=== PATIENT | male | born 1970 | race Caucasian/White ===

== ENCOUNTER 2021-06-25 10:45 | Emergency (ER) | payer OTHER ==
[2021-06-25 11:41] VITALS: BP 110/50; PULSE 77; TEMP 97.8; BMI 27.6
[2021-06-25 11:49] LABS: HEMOGLOBIN 12.7 G/dL (11.7-16.9); MCH 31.6 pg (25.7-33.7); MCHC 34.4 g/dl (32.0-35.9); MEAN CELL VOLUME 92.1 fl (80-96); MEAN PLT VOLUME 8.3 fl (7.5-11.1); PLATELET COUNT 73.4 10^3/uL (134-434); RBC 4.02 10^6/uL (4.00-5.60); RDW 14.3 % (11.9-15.9); WHITE BLOOD COUNT 6.3 10^3/uL (4.0-10.8)
[2021-06-25 12:05] LABS: ALBUMIN 2.7 g/dl (3.4-5.0); BILIRUBIN,TOTAL 0.6 mg/dl (0.2-1); CALCIUM 8.8 mg/dl (8.5-10); CREATININE 0.8 mg/dl (0.55-1.3); TOT PROT 6.1 g/dl (6.4-8.2)
[2021-06-25 13:13] LABS: PLATELET ESTIMATE DECREASED
[2021-06-25] MEDS ORDERED: CEFTRIAXONE 1,000 MG in DEXTROSE 5%-WATER - 50 ML IVPB ONE (13:33)
[2021-06-25] MEDS ORDERED: POTASSIUM CHLORIDE TABS 20 MEQ TABLET.ER (FP) PO ONE ×2 (13:35→13:40)
[2021-06-25] MEDS ORDERED: cefTRIAXone SODIUM 1 GM VIAL ONE (13:40)
== END 2021-06-25 14:26 | disposition home or self-care (01) ==
LOC: FER 10:45
PROC: 3E033GC Introduction of Other Therapeutic Substance into Peripheral Vein, Percutaneous Approach (ICD-10-PCS; principal; 2021-06-25)
DX: L03.116 Cellulitis of left lower limb (principal); D69.6 Thrombocytopenia, unspecified; E87.6 Hypokalemia
CPT/HCPCS: 36415; 71045-TC-FY; 73630-TC-LT; 80053; 85025; 93971-TC; 99284-25

== ENCOUNTER 2022-09-29 19:57 | Emergency (ER) | payer OTHER ==
[2022-09-29 20:41] VITALS: BP 129/59; PULSE 74; RESP 16; TEMP 97.3; BMI 28.3
== END 2022-09-29 20:56 | disposition home or self-care (01) ==
LOC: FER 19:57
DX: Z04.1 Encounter for examination and observation following transport accident (principal)
CPT/HCPCS: 99282-25

== ENCOUNTER 2023-10-08 12:51 | Emergency (ER) | payer OTHER ==
[2023-10-08 13:26] VITALS: BP 111/57; PULSE 71; RESP 20; TEMP 98.4; BMI 29.2
== END 2023-10-08 16:28 | disposition home or self-care (01) ==
LOC: FER 12:51
DX: S00.03XA Contusion of scalp, initial encounter (principal); G91.9 Hydrocephalus, unspecified; X50.1XXA Overexertion from prolonged static or awkward postures, initial encounter
CPT/HCPCS: 70450-TC; 99284-25